=== PATIENT | male | born 1990 | race Asian ===

== ENCOUNTER → 2017-08-11 20:57 | Emergency (ER) | payer OTHER ==
[~2017-08-11 20:57] MED LIST: Diphenoxylat/Atrop 2.5-0.025M* 1 TAB PO ONE; Metoclopramide IV* 5 MG/ML 2 ML VIAL IV SLOW PU ONE
[2017-08-11 22:52] LABS: ABS Basophils 0 10^3/ul (0-0.2); ABS Eosinophils 0 10^3/ul (0-0.6); ABS Lymphocytes 0.7 10^3/ul (1.0-4.8); ABS Monocytes 0.4 10^3/ul (0-0.8); ABS Neutrophils 16.3 10^3/ul (1.5-7.7); ABS Nucleated RBC 0 10^3/ul; Eosinophil % 0.1 % (0-6); Hematocrit 44 % (42-52); Hemoglobin 15.6 g/dl (14.0-18.0); Lymphocyte % 4.1 % (25-47); Mean Corpuscular HGB Conc 36 g/dl (31-36); Mean Corpuscular Hemoglobin 32 pg (27-31); Mean Corpuscular Volume 90 fL (80-94); Mean Platelet Volume 6.4 um3 (7.4-10.4); Nucleated Red Blood Cells % 0; Platelet Count 230 10^3/ul (150-450); Red Blood Count 4.88 10^6/ul (4.0-5.4); Red Cell Distribution Width 13 % (10.5-15); White Blood Count 17.4 10^3/ul (3.5-10.8)
[2017-08-11] MEDS: NS 0.9% 1000 ML* 2,000 ML IV ONE ×2 (23:01→23:02)
[2017-08-11 23:08] LABS: EGFR Non-African American 84.1 (>60)
--- NOTE | 2017-08-12 00:45 | ED ---
Sera Soni Rebecca, scribed for Joseph Peterson MD on 08/11/17 at 2223 . Abdominal Pain/Male - HPI Summary HPI Summary: Pt is a 27 y/o M who presents to ED c/o abdominal pain with N/V/D. Pain is in the LUQ and is described as more of a "discomfort" than a pain, ranked 2/10 on triage. Sx began last night and the pt believes they are related to seafood that he has eaten. Sx alleviated by laying down. Sx have improved since onset, with his last V/D episode at about 1999 after waking up from a nap. Additionally c/o subjective fever and UE weakness/numbness. - History of Current Complaint Chief Complaint: EDNauseaVomitDiarrh Stated Complaint: STOMACH PAIN VOMITTING Time Seen by Provider: 08/11/17 22:11 Hx Obtained From: Patient Onset/Duration: Lasting Days - Started last night, Still Present Severity Initially: Moderate Severity Currently: Mild Pain Intensity: 2 Pain Scale Used: 0-10 Numeric Location: Discrete At: LUQ Radiates to: Other - "discomfort" Alleviating Factor(s): Other: - Laying down Associated Signs And Symptoms: Positive: Nausea, Vomiting, Diarrhea - Allergies/Home Medications Allergies/Adverse Reactions: Allergies Allergy/AdvReac Type Severity Reaction Status Date / Time No Known Allergies Allergy Verified 08/11/17 21:00 Home Medications: Home Medications Acetaminophen TAB* [Tylenol TAB*] 650 mg PO Q4H PRN 08/11/17 [History Confirmed 08/11/17] PMH/Surg Hx/FS Hx/Imm Hx Previously Healthy: Yes Endocrine/Hematology History: Denies: Hx Diabetes Cardiovascular History: Denies: Hx Coronary Artery Disease, Hx Hypertension Infectious Disease History: No Infectious Disease History: Denies: Traveled Outside the [place] in Last 30 Days - Family History Known Family History: Negative: Cardiac Disease, Hypertension, Diabetes - Social History Alcohol Use: Weekly Substance Use Type: Reports: None Smoking Status (MU): Never Smoked Tobacco Review of Systems Positive: Fever Positive: Abdominal Pain, Vomiting, Diarrhea, Nausea Positive: Weakness - UE, Numbness - UE All Other Systems Reviewed And Are Negative: Yes Physical Exam - Summary Physical Exam Summary: VITAL SIGNS: Reviewed. GENERAL: ~Patient is a well-developed and nourished male who is lying comfortable in the stretcher. Patient is not in any acute respiratory distress. HEAD AND FACE: No signs of trauma. No ecchymosis, hematomas or skull depressions. No sinus tenderness. EYES: PERRLA, EOMI x 2, No injected conjunctiva, no nystagmus. EARS: Hearing grossly intact. Ear canals and tympanic membranes are within normal limits. MOUTH: Oropharynx within normal limits. NECK: Supple, trachea is midline, no adenopathy, no JVD, no carotid bruit, no c- spine tenderness, neck with full ROM. CHEST: Symmetric, no tenderness at palpation LUNGS: Clear to auscultation bilaterally. No wheezing or crackles. CVS: Regular rate and rhythm, S1 and S2 present, no murmurs or gallops appreciated. ABDOMEN: Soft, non-tender. No signs of distention. No rebound no guarding, and no masses palpated. Bowel sounds are normal. EXTREMITIES: FROM in all major joints, no edema, no cyanosis or clubbing. NEURO: Alert and oriented x 3. No acute neurological deficits. Speech is normal and follows commands. SKIN: Dry and warm. Pale. Triage Information Reviewed: Yes Vital Signs On Initial Exam: Initial Vitals Temp Pulse Resp BP Pulse Ox 97 F 109 22 126/77 100 08/11/17 21:00 08/11/17 21:00 08/11/17 21:00 08/11/17 21:00 08/11/17 21:00 Vital Signs Reviewed: Yes Diagnostics - Vital Signs Vital Signs Temp Pulse Resp BP Pulse Ox 08/11/17 21:00 97 F 109 22 126/77 100 - Laboratory Result Diagrams: 08/11/17 22:41 08/11/17 22:41 Lab Statement: Any lab studies that have been ordered have been reviewed, and results considered in the medical decision making process. Re-Evaluation - Re-Evaluation First Eval Re-Evaluation Time: 23:50 Change: Improved Abdominal Pain Fem Course/Dx - Course Assessment/Plan: Pt is a 27 y/o M who presents to ED c/o LUQ abdominal pain with N/V/D since last night, suspected to be related to seafood he had eaten. Sx alleviated by laying down. Sx have improved since onset, with his last V/D episode at about 1999 after waking up from a nap. Additionally c/o subjective fever and UE weakness/numbness. Bloodwork was done. In the ED course, pt received Lomotil, Reglan and fluids which improved sx. Pt will be D/C to home with Dx of gastroenteritis and food poisoning. He understands and agrees. - Diagnoses Provider Diagnoses: Gastroenteritis, Food poisoning Discharge - Sign-Out/Discharge Documenting (check all that apply): Discharge - Discharge - Discharge Plan Condition: Stable Disposition: HOME Patient Education Materials: Gastroenteritis (ED), Food Poisoning (ED) Referrals: [facility] [place] [facility]IAN REFERRAL [Outside] - 3 Days Additional Instructions: RETURN TO EMERGENCY DEPARTMENT FOR ANY NEW OR WORSENING SYMPTOMS The documentation as recorded by the Sera meza Rebecca accurately reflects the service I personally performed and the decisions made by me, Joseph Peterson MD.
[2017-08-12 01:05] VITALS: BP 104/60
== END | disposition home or self-care (01) ==
LOC: ED 20:57
DX: K52.9 Noninfective gastroenteritis and colitis, unspecified (principal); T62.91XA Toxic effect of unspecified noxious substance eaten as food, accidental (unintentional), initial encounter; Y92.9 Unspecified place or not applicable
CPT/HCPCS: 36415; 80053; 83690; 83735; 85025; 86140; 96360; 96374; 99282; A9270-GY; J2765